=== PATIENT | male | born 1990 | race Caucasian/White ===

== ENCOUNTER 2016-11-19 21:58 | Emergency (ER) | payer MEDICAID ==
[2016-11-19 22:15] VITALS: BP 129/78; PULSE 95; RESP 20; TEMP 98.8; O2SAT 93
[2016-11-19] MEDS ORDERED: LET GEL TOPICAL 1 EA SYR TP ONE (23:02)
--- NOTE | 2016-11-19 23:02 | EDPHY ---
H & P Time Seen by Provider: 11/19/16 22:45 HPI/ROS: CHIEF COMPLAINT: Dog bite HISTORY OF PRESENT ILLNESS: This is a 26-year-old male presenting to the emergency department reports being bit by neighbors dog this evening around 1999. Neighbor saw nickolas has vaccines up-to-date well groomed not ill- appearing. Patient states the dog grabbed him on his right forearm and bit him on is left thigh right middle finger. Patient states needs tetanus vaccine. Denies any other injuries REVIEW OF SYSTEMS: Constitutional: No fever, no chills. Eyes: No discharge. No blurred vision ENT: No sore throat. Cardiovascular: No chest pain, no palpitations. Respiratory: No cough, no shortness of breath. Gastrointestinal: No abdominal pain, no vomiting. Genitourinary: No difficulty urinating Musculoskeletal: No back pain. Dog bite right forearm puncture wound, left thigh, and right middle finger Skin: No rashes. Neurological: No headache. Smoking Status: Heavy smoker Physical Exam: General Appearance: Alert, no distress. Eyes: Pupils equal and round no pallor or injection. ENT, Mouth: Mucous membranes moist. Respiratory: There are no retractions, lungs are clear to auscultation. Cardiovascular: Regular rate and rhythm. Gastrointestinal: Abdomen is soft and nontender, no masses, bowel sounds normal. Neurological: No focal deficits Skin: Warm and dry, no rashes. Musculoskeletal: Neck is supple nontender. Extremities: Puncture wounds noted to right posterior and anterior forearm, right middle tip of finger puncture wounds , left thigh puncture wound with ecchymosis full range of motion. Positive CMS intact no obvious deformity Psychiatric: Patient is oriented X 3, acting appropriate Constitutional: Initial Vital Signs Temperature (C) 37.1 C 11/19/16 22:11 Heart Rate 95 11/19/16 22:11 Respiratory Rate 20 11/19/16 22:11 Blood Pressure 129/78 H 11/19/16 22:11 O2 Sat (%) 93 11/19/16 22:11 Allergies/Adverse Reactions: No Known Allergies Allergy (Unverified 11/19/16 22:10) Home Medications: Medication Instructions Recorded Clindamycin HCl [Clindamycin] 300 mg PO TID #21 cap 11/19/16 Cymbalta 11/19/16 GABAPENTIN 11/19/16 Lamotrigine 11/19/16 VYVANSE 11/19/16 Medical Decision Making ED Course/Re-evaluation: Discussed the plan of care: Tetanus vaccine, wound irrigation 2330: Wound evaluation, no sutures needed, bacitracin placed with dressings. 2355: Discharge home---> stable, discussed discharge instructions Differential Diagnosis: Other differential diagnosis considered but not limited to foreign body, puncture wound involving tendon, and deep muscle laceration - Data Points Medications Given: Discontinued Medications Clindamycin (Clindamycin) 150 mg PO EDNOW ONE PRN Reason: Protocol Stop: 11/19/16 23:05 Last Admin: 11/19/16 23:13 Dose: 150 mg Diphtheria/Tetanus/Acell Pertussis (Boostrix) 0.5 ml IM .ONCE ONE Stop: 11/19/16 23:04 Last Admin: 11/19/16 23:11 Dose: 0.5 ml Departure - Departure Disposition: Home, Routine, Self-Care Clinical Impression: Dog bite Qualifiers: Encounter type: initial encounter Qualified Code(s): W54.0XXA - Bitten by dog, initial encounter Condition: Good Instructions: Animal Bite (ED) Additional Instructions: 1. Keep wounds clean dry 2. No [place] water, river water as this can increase her chances for wound infection 3. Due to the multiple dog bites and puncture wound, antibiotics have been prescribed 4. Follow up with your primary care provider at [facility] Referrals: NONE *PRIMARY CARE P,. [Primary Care Provider] - As per Instructions [facility],. [Clinic] - As per Instructions Stand Alone Forms: Work Excuse Prescriptions: Clindamycin HCl [Clindamycin] 300 mg PO TID #21 cap
[2016-11-19] MEDS ORDERED: TDAP ADULT 0.5 ML INJ (BOOSTRIX) IM ONE (23:03)
[2016-11-19] MEDS ORDERED: CLINDAMYCIN 150 MG CAP PO ONE (23:04)
[2016-11-19] MEDS ORDERED: HYDROGEN PEROXIDE 236 ML BOTTLE TP ONE (23:06)
== END 2016-11-20 00:27 | disposition home or self-care (01) ==
PROC: 3E0234Z Introduction of Serum, Toxoid and Vaccine into Muscle, Percutaneous Approach (ICD-10-PCS; principal; 2016-11-19)
DX: S51.851A Open bite of right forearm, initial encounter (principal); S71.152A Open bite, left thigh, initial encounter; S61.252A Open bite of right middle finger without damage to nail, initial encounter; F17.200 Nicotine dependence, unspecified, uncomplicated; Z23 Encounter for immunization; W54.0XXA Bitten by dog, initial encounter

== ENCOUNTER 2017-04-18 20:47 | Emergency (ER) | payer MEDICAID, OTHER ==
[2017-04-18 20:52] VITALS: RESP 16
[2017-04-18] MEDS ORDERED: CEPHALEXIN 500MG PREPACK#4 BTL TAKEHOME ONE (21:53)
--- NOTE | 2017-04-18 21:53 | EDPHY ---
H & P Stated Complaint: finger lac HPI/ROS: Chief complaint: Left 4th finger laceration History of present illness: This is a 26-year-old male who presents to the emergency department for a left 4th finger laceration. Patient cut his finger with a knife while at work just prior to arrival. Minimal discomfort. Minimal bleeding which has been controlled with a dressing. No report of paresthesias or abnormal coolness to the finger. He is still able to move it well. His tetanus is up-to-date. - Personal History Current Tetanus/Diphtheria Vaccine: No Current Tetanus Diphtheria and Acellular Pertussis (TDAP): No - Medical/Surgical History Hx Asthma: No Hx Chronic Respiratory Disease: No Hx Diabetes: No Hx Cardiac Disease: No Hx Renal Disease: No Hx Cirrhosis: No Hx Alcoholism: No Hx HIV/AIDS: No Hx Splenectomy or Spleen Trauma: No Other PMH: Bipolar - Social History Smoking Status: Heavy smoker - Physical Exam Exam: General: Alert, nontoxic. Skin: 1 cm laceration to the extensor surface of the left 4th finger just distal to the PIP joint. Musculoskeletal: Patient is flexing extending his finger well in the DIP, PIP and MCP joint well. Vascular: Capillary refill brisk in the left 4th finger. Neurologic: Sensation is intact in left 4th finger using light touch and two- point discrimination testing. Constitutional: Initial Vital Signs Temperature (C) 36.5 C 04/18/17 20:50 Heart Rate 92 04/18/17 20:50 Respiratory Rate 16 04/18/17 20:50 Blood Pressure 124/72 H 04/18/17 20:50 O2 Sat (%) 97 04/18/17 20:50 O2 Delivery Mode Room Air Allergies/Adverse Reactions: No Known Allergies Allergy (Unverified 11/19/16 22:10) Home Medications: Medication Instructions Recorded Clindamycin HCl [Clindamycin] 300 mg PO TID #21 cap 11/19/16 Cymbalta 11/19/16 GABAPENTIN 11/19/16 Lamotrigine 11/19/16 VYVANSE 11/19/16 Cephalexin [Keflex] 500 mg PO TID 5 Days cap 04/18/17 Medical Decision Making Procedures: Procedure: Laceration repair. Verbal consent was obtained from the patient. The 1 cm laceration on the left 4th finger was anesthetized in the usual fashion. The wound was irrigated, draped and explored to its base with a gloved finger. There were no deep structures involved. A partial tendon laceration was identified. The wound was repaired with 5 0 Prolene, 3 simple interrupted sutures. The wound repair was simple. The procedure was performed by myself. Procedure: Splint placement. A finger splint was applied. After application of the splint I returned and re- examined the patient. The splint was adequately immobilizing the joint and distal to the splint the patient's circulation and sensation was intact. ED Course/Re-evaluation: Patient seen under the supervision of my secondary supervising physician Dr. Joe Weiner. Patient presents to the emergency department for a left 4th finger laceration. Exploration of the wound is concerning for a partial tendon laceration. The finger is neurovascularly intact. He continues to have good musculoskeletal control. Wound is cleaned, repaired and splinted. Given tendon injury patient is started on antibiotics. He is referred to a hand surgeon for recheck. Return precautions are given. Patient voiced understanding and agreement with plan. Differential Diagnosis: Included but not limited to laceration, deep structure injury, foreign body contamination - Data Points Medications Given: Discontinued Medications Cephalexin (Keflex 500 Mg Prepack#4) 1 btl TAKEHOME EDNOW ONE PRN Reason: Protocol Stop: 04/18/17 21:54 Last Admin: 04/18/17 22:01 Dose: 1 btl Departure - Departure Disposition: Home, Routine, Self-Care Clinical Impression: Finger laceration Qualifiers: Encounter type: initial encounter Finger: ring finger Damage to nail status: without damage Foreign body presence: without foreign body Laterality: left Qualified Code(s): S61.215A - Laceration without foreign body of left ring finger without damage to nail, initial encounter Condition: Good Instructions: Finger Laceration (ED), Tendon Laceration (ED) Additional Instructions: Follow-up with hand surgery next week for continued evaluation and care. I am concerned you have partially cut your extensor tendon. Take antibiotics as prescribed Clean the wound at least twice daily, apply antibacterial ointment and a Band- Aid and then replace finger splint If symptoms worsen or new symptoms develop return to the emergency room for recheck Referrals: Nela Lehman MD [Medical Doctor] - As per Instructions Prescriptions: Cephalexin [Keflex] 500 mg PO TID 5 Days cap
[2017-04-18 22:11] VITALS: BP 117/73; PULSE 82; TEMP 98.2; O2SAT 94
== END 2017-04-18 22:09 | disposition home or self-care (01) ==
PROC: 0HQGXZZ Repair Left Hand Skin, External Approach (ICD-10-PCS; principal; 2017-04-18)
DX: S61.215A Laceration without foreign body of left ring finger without damage to nail, initial encounter (principal); W26.0XXA Contact with knife, initial encounter; Y92.69 Other specified industrial and construction area as the place of occurrence of the external cause; Y99.0 Civilian activity done for income or pay; Y93.89 Activity, other specified; F17.200 Nicotine dependence, unspecified, uncomplicated
CPT/HCPCS: L3925

== ENCOUNTER 2017-09-14 13:57 | Emergency (ER) | payer MEDICAID, OTHER ==
[2017-09-14 14:12] VITALS: BP 133/87
--- NOTE | 2017-09-14 18:34 | EDPHY ---
ED Progress Note Narrative: I did not see this patient while he is in the emergency department. He left without being seen.
== END 2017-09-14 15:35 | disposition left against medical advice (07) ==
DX: Z53.21 Procedure and treatment not carried out due to patient leaving prior to being seen by health care provider (principal)